=== PATIENT | male | born 1960 | race Caucasian/White ===

== ENCOUNTER 2025-06-01 21:46 | Emergency (ER) | payer BC ==
[~2025-06-01] VITALS: Ht 185.4 cm; Wt 82.0 kg
[2025-06-01 21:49] VITALS: TEMP 36.7; O2SAT 97
[2025-06-02 01:00] VITALS: BP 102/61; PULSE 86; RESP 18; O2SAT 98
== END 2025-06-02 02:20 | disposition home or self-care (01) ==
LOC: ER 21:46
DX: F10.129 Alcohol abuse with intoxication, unspecified (principal); F32.A Depression, unspecified; Y90.9 Presence of alcohol in blood, level not specified
CPT/HCPCS: 99283; Z7610; A4606